=== PATIENT | female | born 1995 | race Caucasian/White ===

== ENCOUNTER 2022-01-21 21:22 | Observation (INO) | payer OTHER, SELFPAY ==
--- NOTE | 2022-01-21 21:30 | PC.NURSE ---
pt was sent for ED via wheelchair with complains of abdominal pain. pt states she has not had BM for 4 days. denies cramping. FHT 145 Doppler. will continue contractions with toco.
[2022-01-21 22:33] LABS: Appearance Urine Clear (Clear); Bilirubin Urine Negative (Negative); Blood Urine Negative (Negative); Glucose Urine UA Negative (Negative); Ketones Urine Negative (Negative); Leukocyte Esterase Ur 2+ LEU/UL (Negative); Nitrate Urine Negative (Negative); Protein Urine Negative (Negative); Specific Grav Ur 1.015 (1.001-1.035); Urobilinogen Urine 0.2 mg/dL (<2.0); pH Urine 6.5 (5.0-9.0)
[2022-01-21] MEDS: BISACODYL 10 MG SUPPOSITORY RECTAL (22:36)
[2022-01-21 22:40] LABS: Amorphous Sediment Urine Few; Bacteria Urine Trace /hpf; Mucus Urine Rare /lpf; Squamous Epithelial Cell Urine Moderate /hpf (Few)
[2022-01-21 22:41] LABS: Add Urine Microscopic? YES; Color Urine Light Yellow (Yellow)
--- NOTE | 2022-01-21 23:10 | PC.NURSE ---
called Dr. Moon notified pt admission for abdominal pain for constipation. reported pt had BM after dulcolax suppository.discharge order received
--- NOTE | 2022-01-25 13:45 | PM.OBTRLD ---
OB - Triage/Final Diagnosis Visit Information Comments/Additional reasons for admission: I have assessed the risk for this patient, Ashley Duarte, and determined that she would benefit from observation care. Evaluation Laboratory results: Laboratory Tests 01/21/22 22:28 Urine Color Light yellow Urine Appearance Clear Urine pH 6.5 Ur Specific [place] 1.015 Urine Protein Negative Urine Glucose (UA) Negative Urine Ketones Negative Ur Blood (Man) Negative Urine Nitrate Negative Urine Bilirubin Negative Urine Urobilinogen 0.2 Leukocyte Esterase Rfl 2+ H Urine RBC 11-20 H Urine WBC 4-6 H Ur Squamous Epith Cells Moderate H Amorphous Sediment Few H Urine Bacteria Trace Hyaline Casts 1-2 Urine Mucus Rare Final Diagnosis (1) Constipation: Code(s): K59.00 - Constipation, unspecified Status: Acute
== END 2022-01-21 23:23 | disposition home or self-care (01) ==
PROVIDERS: Admitting Provider Obstetrics & Gynecology; PCP Emergency Medicine; Visit Provider Obstetrics & Gynecology
DX: O26.899 Other specified pregnancy related conditions, unspecified trimester (principal); K59.00 Constipation, unspecified; Z3A.00 Weeks of gestation of pregnancy not specified
CPT/HCPCS: 81001; A9270; G0378; G0379